=== PATIENT | male | born 1995 | race Caucasian/White ===

== ENCOUNTER 2023-09-18 07:13 | Day surgery (SDC) | payer BC, OTHER ==
[~2023-09-18 07:13] MED LIST: Sodium Chloride 0.9% 10 ML Syringe FLUSH PRN; Sodium Chloride 0.9% 10 ML Syringe FLUSH SCH
[2023-09-18] MEDS ORDERED: Midazolam 1 MG/ML 2 ML SDV ONE (08:30)
[2023-09-18] MEDS ORDERED: Propofol 200 MG/20 ML SDV ONE ×2 (08:30)
[2023-09-18] MEDS ORDERED: fentaNYL 100 MCG/2 ML SDV ONE (08:30)
[2023-09-18] MEDS ORDERED: Lidocaine 1% PF 2 ML SDV ONE (08:30)
[2023-09-18] MEDS ORDERED: Lactated Ringers 1,000 ML ONE (09:09)
[2023-09-18] MEDS: Lactated Ringers 1,000 ML IV SCH (09:23)
== END 2023-09-18 09:55 | disposition home or self-care (01) ==
LOC: JD.SDS 07:13
PROVIDERS: ATTEND Surgery
DX: K21.00 Gastro-esophageal reflux disease with esophagitis, without bleeding (principal); K62.1 Rectal polyp; K64.9 Unspecified hemorrhoids; F33.1 Major depressive disorder, recurrent, moderate; F41.9 Anxiety disorder, unspecified; K21.9 Gastro-esophageal reflux disease without esophagitis; E66.01 Morbid (severe) obesity due to excess calories; Z68.42 Body mass index [BMI] 45.0-49.9, adult; Z87.891 Personal history of nicotine dependence; Z79.899 Other long term (current) drug therapy
CPT/HCPCS: 43239; 45380; J2250; J2704; J3010; J7120; 00813; J3490